=== PATIENT | female | born 1995 | race Caucasian/White ===

== ENCOUNTER 2018-01-19 13:52 | Emergency (ER) | payer OTHER ==
[~2018-01-19] VITALS: Ht 165.1 cm; Wt 68.0 kg
[2018-01-19] MEDS ORDERED: LIDO:MAALOX 1:1 20 ML SINGLE DOSE. SWSW ONE (15:30)
[2018-01-19] MEDS ORDERED: LORazepam 1 MG TABLET PO ONE (16:45)
--- NOTE | 2018-01-19 16:57 | RAD ---
Chest, PA and Lateral: Technique: PA and lateral views of the chest were obtained. History: Chest pain. Comparison: None. Findings: The heart and pulmonary vasculature appear within normal limits. The lungs are clear. The pleural margins are clear. Impression: No acute chest process is seen. Electronically signed by: Luis Donato MD (01/19/2018 4:54 PM) [facility]
[2018-01-19 17:18] LABS: BILIRUBIN,URINE SMALL (NEG); CLARITY,URINE CLEAR; COLOR,URINE AMBER; NITRITE,URINE NEGATIVE (NEG); PH,URINE 5.5; PROTEIN,URINE 30 mg/dL (NEG-TRACE)
[2018-01-19 17:25] LABS: BACTERIA,URINE FEW /HPF (0-FEW); RBC,URINE 0 /HPF (0-2); SQUAMOUS EPITHELIAL CELL,UR MOD /LPF
[2018-01-19 17:30] VITALS: BP 125/80
--- NOTE | 2018-01-19 17:34 | PHYS DOC ---
Past Medical History Past Medical History: Other Additional Past Medical Histor: thyroid disease Past Surgical History: No Surgical History Alcohol Use: None Drug Use: None Adult General Chief Complaint Chief Complaint: ABDOMINAL PAIN HPI HPI Patient is a 22 year old female who presents with patient states yesterday she began having mid chest pressure and esophageal spasms and mid abdominal pain and vomiting. Patient states that this is chronic and she had these issues before and usually she takes Prilosec and Zantac and it helps. Patient states it has not helped as of today. She denies fever, as pain, shortness of air. She rates her pain a 3 out of 10. She states that her abdomen area is more crampy but there is more pressure and pain in the mid chest that radiates right up her esophagus. Patient is 2 months. Vital signs are stable within normal limits. Patient denies any shortness of air or pain with breathing. Patient denies cough. Patient states more painful when she is moving around. Patient states she had a bowel movement yesterday that was normal for her. Patient denies any blood in her vomit. Patient has a history of esophageal spasms, hypothyroidism, vaginal delivery without complications. Review of Systems Review of Systems Constitutional: Denies fever or chills [] Eyes: Denies change in visual acuity, redness, or eye pain [] HENT: Denies nasal congestion or sore throat [] Respiratory: Denies cough or shortness of breath [] Cardiovascular: No additional information not addressed in HPI [] GI: Mid abdominal pain, nausea, vomiting. denies bloody stools or diarrhea [] : Denies dysuria or hematuria [] Musculoskeletal: Denies back pain or joint pain [] Integument: Denies rash or skin lesions [] Neurologic: Denies headache, focal weakness or sensory changes [] Endocrine: Denies polyuria or polydipsia [] All other systems were reviewed and found to be within normal limits, except as documented in this note. Current Medications Current Medications Current Medications Medications (Trade) Dose Ordered Sig/Josiah Start Time Stop Time Status Last Admin Dose Admin Lorazepam (Ativan) 0.5 mg 1X ONCE 01/19/18 16:45 01/19/18 16:46 DC 01/19/18 17:34 0.5 MG Multi-Ingredient Mouthwash/Gargle (Gi Cocktail) 20 ml 1X ONCE 01/19/18 15:30 01/19/18 15:38 DC 01/19/18 15:41 20 ML Allergies Allergies Allergies Coded Allergies Type Severity Reaction Last Updated Verified Penicillins Allergy Intermediate 01/19/18 Yes Sulfa (Sulfonamide Antibiotics) Allergy Intermediate 01/19/18 Yes Physical Exam Physical Exam Constitutional: Well developed, well nourished, no acute distress, non-toxic appearance. [] HENT: Normocephalic, atraumatic, bilateral external ears normal, oropharynx moist, no oral exudates, nose normal. [] Eyes: PERRLA, EOMI, conjunctiva normal, no discharge. [] Neck: Normal range of motion, no tenderness, supple, no stridor. [] Cardiovascular:Heart rate regular rhythm, no murmur [] Lungs & Thorax: Bilateral breath sounds clear to auscultation [] Abdomen: Bowel sounds normal, soft, mid abdominal tenderness, no masses, no pulsatile masses. [] Skin: Warm, dry, no erythema, no rash. [] Back: No tenderness, no CVA tenderness. [] Extremities: No tenderness, no cyanosis, no clubbing, ROM intact, no edema. [] Neurologic: Alert and oriented X 3, normal motor function, normal sensory function, no focal deficits noted. [] Psychologic: Affect normal, judgement normal, mood normal. [] Current Patient Data Vital Signs Vital Signs Date Time Temp Pulse Resp B/P (MAP) Pulse Ox O2 Delivery O2 Flow Rate FiO2 01/19/18 17:30 89 16 125/80 (95) 100 Room Air 01/19/18 15:12 97.9 97.9 Lab Values Laboratory Tests Test 01/19/18 17:00 Urine Collection Type Unknown Urine Color Ambar Urine Clarity Clear Urine pH 5.5 Urine Specific [place] >=1.030 Urine Protein 30 mg/dL (NEG-TRACE) Urine Glucose (UA) Negative mg/dL (NEG) Urine Ketones (Stick) Trace mg/dL (NEG) Urine Blood Negative (NEG) Urine Nitrite Negative (NEG) Urine Bilirubin Small (NEG) Urine Urobilinogen Dipstick 1.0 mg/dL (0.2 mg/dL) Urine Leukocyte Esterase Small (NEG) Urine RBC 0 /HPF (0-2) Urine WBC 5-10 /HPF (0-4) Urine Squamous Epithelial Cells Mod /LPF Urine Bacteria Few /HPF (0-FEW) Urine Mucus Mod /LPF EKG EKG [] Radiology/Procedures Radiology/Procedures [] Impressions: [facility] [address] [place] [address] IMAGING REPORT Signed PATIENT: ALEXANDRIA CLARKE ACCOUNT: [id number] : 1995 LOCATION: ER AGE: 22 SEX: F EXAM STATUS: REG ER ORD. PHYSICIAN: MARTHA PAUL APRN REASON: chest pressure PROCEDURE: CHEST PA & LATERAL Chest, PA and Lateral: Technique: PA and lateral views of the chest were obtained. History: Chest pain. Comparison: None. Findings: The heart and pulmonary vasculature appear within normal limits. The lungs are clear. The pleural margins are clear. Impression: No acute chest process is seen. Electronically signed by: Luis Donato MD (01/19/2018 4:54 PM) [facility] DICTATED and SIGNED BY: LUIS DONATO MD DATE: 01/19/18 1653 Course & Med Decision Making Course & Med Decision Making Patient is a 22 year old female who presents with patient states yesterday she began having mid chest pressure and esophageal spasms and mid abdominal pain and vomiting. Patient states that this is chronic and she had these issues before and usually she takes Prilosec and Zantac and it helps. Patient states it has not helped as of today. She denies fever, as pain, shortness of air. She rates her pain a 3 out of 10. She states that her abdomen area is more crampy but there is more pressure and pain in the mid chest that radiates right up her esophagus. Patient is 2 months. Vital signs are stable within normal limits. Patient denies any shortness of air or pain with breathing. Patient denies cough. Denies dysuria. Abdomen is soft but tender to mid abdomen. Patient states more painful when she is moving around. Patient states she had a bowel movement yesterday that was normal for her. Patient denies any blood in her vomit. Patient has a history of esophageal spasms, hypothyroidism, vaginal delivery without complications. PERC negative. Lungs are clear to auscultation all lobes. Heart rate regular without murmur. She is 100% on room air and has a 95 heart rate, 123/81. Chest x-ray shows no acute findings. Urine is not infected. Patient is given a GI cocktail with no relief. Patient states she is just very anxious. Patient has a ride and she is given 0.5 mg of Ativan by mouth. Skin is pink warm and dry. Patient has no ringing in her extremities. Alert and oriented. Patient is given a referral to GI and told that she does need to follow-up with her primary care doctor. [] Dragon Disclaimer Dragon Disclaimer This electronic medical record was generated, in whole or in part, using a voice recognition dictation system. Departure Departure Impression: Primary Impression: Anxiety Additional Impression: Abdominal pain Disposition: 01 HOME, SELF-CARE Condition: STABLE Referrals: UNKNOWN PCP NAME (PCP) LELAND GRANT MD Patient Instructions: Anxiety and Panic Attacks, Esophageal Spasm Additional Instructions: Follow-up with GI clear primary care doctor as soon as possible. Continue taking medications as prescribed. Problem Qualifiers Additional Impression: Abdominal pain Abdominal location: epigastric Qualified Codes: R10.13 - Epigastric pain MARTHA PAUL [employer] Jan 19, 2018 17:34
== END 2018-01-19 17:39 | disposition home or self-care (01) ==
LOC: ER 13:52
DX: R10.9 Unspecified abdominal pain (principal); F41.9 Anxiety disorder, unspecified; R11.2 Nausea with vomiting, unspecified; K22.4 Dyskinesia of esophagus; R07.89 Other chest pain; Z88.0 Allergy status to penicillin; Z88.2 Allergy status to sulfonamides
CPT/HCPCS: 71046; 81001; 87086; 99285-25

== ENCOUNTER → 2018-02-06 | Day surgery (SDC) | payer OTHER ==
[~2018-02-06] MED LIST: BUPIVAC MPF-EPI 0.5%-1:200000 30 ML VIAL. INJ ONE; BUPIVACAINE MPF 0.25% 30 ML VIAL. ONE; DEXAMETHASONE SOD PHOS 20 MG/5 ML VIAL. ONE; GLYCOPYRROLATE 1 MG/5 ML VIAL. ONE; HYDROmorphone 2 MG/ML VIAL IV PRN; IOHEXOL 300 MG/ML 100ML VIAL. ONE; IV RINGERS,LACTATED 1000ML 1,000 ML IV SCH; KETOROLAC 30 MG/ML INJ FOR OR. INJ ONE; LEVO75TA PO; LIDOCAINE 1% PF 2 ML VIAL. ID PRN; LIDOCAINE 2% PF Vial for OR 5 ML VIAL. ONE; MIDAZOLAM HCL/PF 2 MG/2 ML VIAL. ONE; MORPHINE SULFATE 2 MG/ML VIAL. IV PRN; NEOSTIGMINE METHYLSULFATE 5 MG/5 ML SYRINGE. ONE; ONDANSETRON PF 4 MG/2 ML VIAL. IV PRN; ONDANSETRON PF 4 MG/2 ML VIAL. ONE; OXYC1TAB15 PO; PHENYLEPHRINE in 0.9% NACL PF 1 MG/10 ML SYRINGE. IV ONE; PROCHLORPERAZINE 10 MG/2 ML VIAL. IV PRN; PROCHLORPERAZINE 10 MG/2 ML VIAL. ONE; PROPOFOL 20 ML IV ONE; ROCURONIUM 50 MG/5 ML VIAL. ONE; SEVOFLURANE 61 TO 120 MINUTES. IH ONE; SURGICEL HEMOSTAT 4X8 EACH. ONE; ePHEDrine PF IN SALINE 50 MG/5 ML DISP.SYRIN IV ONE; fentaNYL PF VIAL 100 MCG/2 ML VIAL IV PRN; fentaNYL PF VIAL 100 MCG/2 ML VIAL ONE; oxyCODONE/APAP 5/325 1 TAB TABLET PO ONE
[2018-02-06 11:13] LABS: PREG TEST PT QUAL NEGATIVE (NEG)
--- NOTE | 2018-02-06 12:59 | PDOC4 ---
Operative Note Operative Note Date: 02/06/2018 Preoperative diagnosis: Chronic cholecystitis Postoperative diagnosis: Same Procedure: Laparoscopic cholecystectomy Surgeon: Zaire Specimen: Gallbladder Dictation: Patient is a 22-year-old female has had right upper quadrant abdominal pain throughout her and also shows sludge and stones of the gallbladder. The procedure of laparoscopic cholecystectomy is explained to the patient detail was benefits were also discussed including bleeding infection alternatives to this procedure also discussed with the patient seemed understandable verbal written consent to have procedure performed. Patient was taken to the operating room placed in supine position general anesthesia was initiated once patient was sleeping intubated her abdomen was prepped and draped usual sterile fashion using ChloraPrep. Mcmahon umbilicus was injected with quarter percent Marcaine with epinephrine incision was made with a blade scalpel Veress needle was placed within the abdomen pneumoperitoneum was achieved with this complete 11 mm port was placed and a 5 mm camera was placed within the abdomen and inspected no other abnormalities were noted. 5 mm port was placed in the epigastrium and right mid abdomen in the right lateral abdomen all under direct visualization the dome of the gallbladder was grasped and retracted cephalad the infundibulum of the gallbladder was grasped tract laterally exposing the triangle that her tissues of the triangle taken down with blunt dissection exposing the cystic duct and cystic artery both were doubly clipped and transected the gallbladder is taken off the liver with a clutch cautery was then Endo Catch bag and removed and the umbilicus the right upper quadrant was irrigated and suctioned dry hemostasis to be appropriate and the pneumoperitoneum was reduced all ports removed fascial defect at the umbilicus closed [id number] 0 Vicryl suture and skin was reapproximated all port sites for subcuticular Monocryl Mastisol Steri-Strips and island dressings were applied. The patient was wakened and expected in operating room to recovery in stable condition all sponge instrument needle counts listed as correct estimate blood loss 10 mL. ERYES MCKNIGHT MD Feb 06, 2018 12:59
--- NOTE | 2018-02-06 13:00 | DISCH ---
DISCHARGE INSTRUCTIONS Condition on Discharge Condition on Discharge: Stable Activity After Discharge Activity Instructions for Disc: Avoid exertion Other activity instructions: no lifting more than 20 pounds for 2 weeks Diet after Discharge Diet after Discharge: Low Fat Wound Incision Care Other wound/incision instructi: May shower in 24 hours Contacting the after DC Call your doctor for: If your condition worsens Follow-Up Follow up with: Dr. Mcknight in 2 weeks REYES MCKNIGHT MD Feb 06, 2018 13:00
[2018-02-06] MEDS: fentaNYL PF VIAL 100 MCG/2 ML VIAL IV PRN ×2 (13:28→13:42)
[2018-02-06 14:30] VITALS: BP 115/60
--- NOTE | 2018-02-10 18:07 | PATHOLOGY ---
[facility] Accession Number: [id number] . 01 Material submitted: . GALLBLADDER WITH CONTENTS . 01 Clinical history: . Symptomatic cholelithiasis . 02 Diagnosis: Gallbladder, laparoscopic cholecystectomy: - Cholelithiasis. - Cholesterolosis. - Chronic cholecystitis, mild. - Reactive changes of gallbladder neck lymph node. . (JPM:mm; 02/10/18) [facility]/02/10/2018 . 02 Comment: There is no evidence of malignancy. . (JPM:mm; 02/10/18) . 02 Electronically signed: . John Dove MD, Pathologist NPI- [id number] . 01 Gross description: . The specimen is received in formalin, labeled "Wilfredo Roach, gallbladder with contents", is an intact, distended gallbladder measuring 7.0 x 3.2 x 2.6 cm with a glistening, smooth nunes-purple serosa. The lumen is filled with yellow-green viscous bile that contains multiple dark brown, bosselated to irregular calculi measuring 2.0 x 2.0 x 0.5 cm in aggregate. The mucosa is nunes-brown and the wall measure up to 0.1 cm thick. Within the cystic neck region there is a nunes rubbery lymph node measuring 1.0 x 0.6 x 0.5 cm with a nunes homogeneous cut surface. No discrete masses are identified. [employer] tissue is submitted in A1. ([facility]; 02/06/2018) [facility] . 02 Pathologist provided ICD-10: K80.10, K82.4 . 02 CPT . 458019 Specimen Comment: A courtesy copy of this report has been sent to Specimen Comment: [phone], . Specimen Comment: Report sent to / DR GOMES Specimen Comment: A duplicate report has been generated due to demographic updates. Performed at: 01 [facility] [address] [id number] MD Neil Mckeon MD Phone: [phone] Performed at: 02 [facility] [address] [place], [place] [id number] MD John Dove MD Phone: [phone]
== END | disposition home or self-care (01) ==
LOC: SURG 09:35
PROVIDERS: ATTEND Surgery
DX: K80.10 Calculus of gallbladder with chronic cholecystitis without obstruction (principal); E03.9 Hypothyroidism, unspecified; Z88.0 Allergy status to penicillin; Z88.2 Allergy status to sulfonamides; Z87.891 Personal history of nicotine dependence; Z72.89 Other problems related to lifestyle; Z79.899 Other long term (current) drug therapy; Z98.890 Other specified postprocedural states; Z82.49 Family history of ischemic heart disease and other diseases of the circulatory system; Z88.4 Allergy status to anesthetic agent
CPT/HCPCS: 36415; 47562; 84703; 88304; A7015; J0780; J1100; J1885; J1956; J2001; J2250; J2370; J2405; J2704; J2710; J3010; J3490; J7030; J7120; Q9967